=== PATIENT | male | born 1970 | race Caucasian/White ===

== ENCOUNTER 2020-06-26 06:00 | Emergency (ER) | payer OTHER ==
[2020-06-26 06:52] VITALS: BP 127/80; PULSE 82; TEMP 99.2; BMI 29.8
[2020-06-26 08:45] LABS: BASO % 0.1 % (0-2.0); EOS % 2.1 % (0-4.5); HEMATOCRIT 38.8 % (35.4-49); HEMOGLOBIN 13.5 GM/dL (11.7-16.9); LYMPH % 8.9 % (8-40); MCH 31.2 pg (25.7-33.7); MCHC 34.9 g/dl (32.0-35.9); MEAN CELL VOLUME 89.3 fl (80-96); MEAN PLT VOLUME 8.1 fl (7.5-11.1); MONO % 8.2 % (3.8-10.2); NEUT % 80.7 % (42.8-82.8); PLATELET COUNT 279 K/MM3 (134-434); RBC 4.34 M/mm3 (4.00-5.60); RDW 13.3 % (11.9-15.9); WHITE BLOOD COUNT 7.9 K/mm3 (4.0-10.0)
[2020-06-26 09:05] LABS: CHLORIDE 103 mmol/L (98-107); SODIUM 138 mmol/L (136-145)
[2020-06-26 09:09] LABS: ALBUMIN 3.1 g/dl (3.4-5.0); ANION GAP 8 MMOL/L (8-16); BLOOD UREA NITROGEN 10.1 mg/dL (7-18); CALCIUM 8.3 mg/dL (8.5-10.1); CO2 28 mmol/L (21-32); GLUCOSE,RANDOM 102 mg/dL (74-106)
[2020-06-26 09:10] LABS: SGOT/AST 40 U/L (15-37); SGPT/ALT 52 U/L (13-61)
[2020-06-26 09:12] LABS: BILIRUBIN,TOTAL 0.5 mg/dL (0.2-1); TOT PROT 6.9 g/dl (6.4-8.2)
[2020-06-26 09:13] LABS: ALK PHOS 72 U/L (45-117)
[2020-06-26] MEDS ORDERED: DEXAMETHASONE SOD PHOSPHATE 10 MG/1 ML VIAL IVPUSH ONE (09:59)
[2020-06-26] MEDS ORDERED: DEXAMETHASONE SOD PHOSPHATE 4 MG/1 ML VIAL ONE (10:28)
== END 2020-06-26 11:25 | disposition home or self-care (01) ==
LOC: JER 06:00
PROC: 3E033NZ Introduction of Analgesics, Hypnotics, Sedatives into Peripheral Vein, Percutaneous Approach (ICD-10-PCS; principal; 2020-06-26)
DX: R06.02 Shortness of breath (principal); Z11.59 Encounter for screening for other viral diseases
CPT/HCPCS: 36415; 71045-TC-FY; 80053; 82550; 84484; 85025; 93005; 93010; 99284-25; J1100